=== PATIENT | female | born 1990 | race Caucasian/White ===

== ENCOUNTER 2016-07-31 15:19 | Emergency (ER) | payer BC ==
[2016-07-31] MEDS ORDERED: ONDANSETRON HCL 4 MG/2 ML VIAL ONE (15:37)
[2016-07-31] MEDS ORDERED: DEXAMETHASONE 10 MG/ML VIAL ONE (15:52)
[2016-07-31] MEDS ORDERED: HALOPERIDOL 5 MG/ML VIAL ONE (15:52)
[2016-07-31] MEDS ORDERED: DIPHENHYDRAMINE 50 MG/ML VIAL ONE (15:52)
--- NOTE | 2016-07-31 17:52 | ER PHYSICIAN DOCUMENTATION ---
Physician Documentation [facility] Name:Alisha Mullins Age:25 yrs Sex:Female :1990 Arrival Date:07/31/2016 Time:15:19 Bed4 Private MD: Marty Paz Disposition: 08/01 21:57 Chart complete. tl1 Disposition: 07/31/16 16:39 Discharged to Home/Self Care. Impression: Migraine Headache. - Condition is Good. - Discharge Instructions: HEADACHE, Migraine (Classical). - Prescriptions for Imitrex 20 mg/Actuation Nasal Aerosol, Carey - inhale 1 spray by INTRANASAL route once daily - x 1 dose; if headache returns, the dose may be repeated once after 2 hours, not to exceed a total daily dose of 2 sprays; 1 Inhaler. Zofran 4 mg Oral Tablet - take 1-2 tablet by ORAL route every 4-6 hours As needed; 10 tablet. - Medical Reconciliation form form. - Follow up: Aleida Encarnacion MD; When: 4- 6 days; Reason: Recheck today's complaints, Continuance of care. - Problem is new. - Symptoms have improved. - Notes: SOME OF YOUR SYMPTOMS MAY BE RELATED TO HIGH ALTITUDE WELL MIGRAINE. AVOID SLEEPING AT ANY HIGHER ALTITUDE FOR THE NEXT SEVERAL DAYS. DRINK PLENTY OF FLUIDS. RETURN FOR ANY WORSENING OF YOUR SYMPTOMS. HPI: 07/31 15:28 This 25 yrs old Female presents to ER via EMS with complaints of tl1 Nausea/Vomiting. 15:28 Onset: The symptom(s)/episode began/occurred gradually, yesterday, 24 hour(s) ago. She tl1 has a h/o mild altitude illness and migraine headaches. She drove here from [place], arriving 2 nights ago. Yesterday at about 4 pm she developed what she says was a typical migraine h/a with photophobia and subsequent nausea and repeated vomiting. She did have some typical visual symptoms at the start of this headache. She called medics b/c she is unable to keep anything down and feels diffusely weak with severe malaise and fatigue.. Historical: - Allergies: No known drug Allergies; - Home Meds: 1. BC pills - PMHx: MIGRAINES; ANXIETY; altitude illness; panic attacks; - Tetanus: < 10 years. - Ebola Screening: : Patient negative for fever greater than or equal to 101.5 degrees Fahrenheit, and additional compatible Ebola Virus Disease symptoms. Patient denies exposure to infectious person. Patient denies travel to an Ebola-affected area in the 21 days before illness onset. No symptoms or risks identified at this time. . - Immunization history: Flu Vaccine >1 year. - Social history: Smoking status: Patient states was never smoker of tobacco. ROS: 15:33 Abdomen/GI: Positive for nausea, vomiting, Negative for abdominal pain, diarrhea, tl1 constipation, black/tarry stool, rectal bleeding. 15:33 All other systems are negative. Exam: 15:33 Constitutional: The patient appears alert, awake, non-diaphoretic, non-toxic, well tl1 developed, well hydrated, well groomed, well nourished, uncomfortable. 15:33 Head/face: Exam is negative for acute changes, Sinus tenderness, is not appreciated. 15:33 Eyes: Periorbital structures: appear normal, Pupils: equal, round, and reactive to tl1 light and accomodation, Extraocular movements: intact throughout, Conjunctiva: normal. 15:33 ENT: Exam is negative for acute changes. 15:33 Neck: ROM/movement: is normal, is supple. 15:33 Cardiovascular: Rate: normal, Rhythm: regular, Heart sounds: normal, JVD: is not appreciated. 15:33 Respiratory: the patient does not display signs of respiratory distress, Respirations: normal, Breath sounds: are normal. 15:33 Abdomen/GI: Inspection: abdomen appears normal, Palpation: abdomen is soft and non-tender. 15:33 Musculoskeletal/extremity: Exam is negative for acute changes. 15:33 Skin: Exam negative for acute changes, rash. 15:33 Neuro: Orientation: is normal, appropriate for stated age, Mentation: is normal, Memory: is normal, Cranial nerves: grossly normal, Motor: moves all fours, Gait: is steady, at a normal pace, without difficulty, appropriate for age. Vital Signs: 15:24 BP 130 / 64; Pulse 70; Resp 14; Temp 99(O); Pulse Ox 98% on R/A; Weight 77.11 kg; tg Height 5 ft. 9 in. (175.26 cm); Pain 3/10; 16:21 BP 122 / 62; Pulse 64; Resp 14; Pulse Ox 95% on R/A; tg 17:00 BP 115 / 54 (auto/); tg 17:04 Pulse 70; Resp 12; Pulse Ox 95% ; tg 15:24 Body Mass Index 25.10 (77.11 kg, 175.26 cm) tg MDM: 15:28 Patient medically screened. tl1 17:00 Data reviewed: vital signs, nurses notes, and as a result, I will discharge patient. tl1 Counseling: I had a detailed discussion with the patient and/or guardian regarding: the historical points, exam findings, and any diagnostic results supporting the discharge/admit diagnosis. 17:00 Response to treatment: the patient's symptoms have markedly improved after treatment, tl1 and as a result, I will discharge patient. ED course: She felt significantly better. I told her I thought her symptoms are probably most consistent with a migraine headache, and with a possible contribution form some acute mountain sickness. She has had a good response to treatment and I think she does not need to descend in altitude quickly. I think she can recover if she just stays at this altitude for 2-3 days.. 06/04 16:04 Order name: Pulse Ox Continuous; Complete Time: 16:06 tg Dispensed Medications: 15:40 Drug: NS 0.9% 1000 ml; Route: IV; Rate: bolus; Site: right hand; tg 17:00 Follow up: IV Status: Completed infusion; IV Intake: 1000ml tg 15:57 Drug: Decadron 10 mg IVP - Dexamethasone 10 mg; Route: IVP; Site: right hand; tg 16:40 Follow up: Response: No adverse reaction tg 15:57 CANCELLED (Physician Discretion): acetaZOLAMIDE 250 mg PO once tg 15:59 Drug: Benadryl 25 mg; Route: IVP; Site: right hand; tg 16:21 Follow up: Response: No adverse reaction; Nausea is decreased; Pain is decreased tg 16:02 Drug: Haldol 2.5 mg; Route: IVP; Site: right hand; tg 16:21 Follow up: BP 122 / 62; Pulse 64 bpm; Resp 14 bpm; Pulse Ox 95% RA; Response: Nausea is tg decreased Signatures: Eris Best RN RN tg Marty Carrillo MD MD tl1
--- NOTE | 2016-07-31 17:52 | ER NURSING DOCUMENTATION ---
Nurse's Notes [facility] Name:Alisha Mullins Age:25 yrs Sex:Female :1990 Arrival Date:07/31/2016 Time:15:19 Bed4 Private MD: Diagnosis:Migraine Headache Presentation: 07/31 15:23 Presenting complaint: Patient states: N/V, headache, altitude. Transition of care: tg patient was not received from another setting of care. 15:23 Acuity: RAUL 3 tg 15:23 Method Of Arrival: EMS: 410 tg 15:33 Care prior to arrival: IV Fluids given by EMS NS 500 ml Medication(s) given: Zofran 4mg tg IVP. Triage Assessment: 15:23 General: Appears uncomfortable, well developed, well groomed, Behavior is cooperative, tg flat. Pain: Complains of pain in headache. Neuro: Level of Consciousness is awake, alert. Cardiovascular: Capillary refill < 3 seconds. Respiratory: Respiratory effort is even, unlabored. GI: Reports nausea, vomiting. Derm: Skin is pink, warm & dry. Historical: - Allergies: No known drug Allergies; - Home Meds: 1. BC pills - PMHx: MIGRAINES; ANXIETY; altitude illness; panic attacks; - Tetanus: < 10 years. - Ebola Screening: : Patient negative for fever greater than or equal to 101.5 degrees Fahrenheit, and additional compatible Ebola Virus Disease symptoms. Patient denies exposure to infectious person. Patient denies travel to an Ebola-affected area in the 21 days before illness onset. No symptoms or risks identified at this time. . - Immunization history: Flu Vaccine >1 year. - Social history: Smoking status: Patient states was never smoker of tobacco. Screenin:32 Infectious Disease Risk Unable to Obtain. Abuse screen: Denies threats or abuse. Denies tg injuries from another. Nutritional screening: No deficits noted. Assessment: 15:32 See Triage Assessment done by same RN. tg 16:40 Reassessment: Pt reports that she feels jittery and tired at the same time. Also tg reports that her nausea and headache have resolved. . 17:32 Neuro: Moves all extremities. Gait is steady. tg Vital Signs: 15:24 BP 130 / 64; Pulse 70; Resp 14; Temp 99(O); Pulse Ox 98% on R/A; Weight 77.11 kg; tg Height 5 ft. 9 in. (175.26 cm); Pain 3/10; 16:21 BP 122 / 62; Pulse 64; Resp 14; Pulse Ox 95% on R/A; tg 17:00 BP 115 / 54 (auto/); tg 17:04 Pulse 70; Resp 12; Pulse Ox 95% ; tg 15:24 Body Mass Index 25.10 (77.11 kg, 175.26 cm) tg ED Course: 15:20 Patient arrived in ED. jt 15:22 Eris Best, RN is Primary Nurse. tg 15:23 Triage completed. tg 15:28 Marty Carrillo MD is Attending Physician. tl1 15:32 Valuables Remains with patient. Pulse Ox - RN Monitoring Only. tg 15:32 Maintain field IV. Dressing intact. Site clean & dry. Gauge & site: 20g RHand. Oxygen tg Oxygen administration via nasal cannula @ 2L/min. 15:58 Assisted to bathroom. tg 16:10 Arm band placed on Bed in low position Call Light in Reach HOB Elevated Side rails up tg x2. 16:37 Aleida Encarnacion MD is Referral Physician. tl1 Administered Medications: 15:40 Drug: NS 0.9% 1000 ml; Route: IV; Rate: bolus; Site: right hand; tg 17:00 Follow up: IV Status: Completed infusion; IV Intake: 1000ml tg 15:57 Drug: Decadron 10 mg IVP - Dexamethasone 10 mg; Route: IVP; Site: right hand; tg 16:40 Follow up: Response: No adverse reaction tg 15:57 CANCELLED (Physician Discretion): acetaZOLAMIDE 250 mg PO once tg 15:59 Drug: Benadryl 25 mg; Route: IVP; Site: right hand; tg 16:21 Follow up: Response: No adverse reaction; Nausea is decreased; Pain is decreased tg 16:02 Drug: Haldol 2.5 mg; Route: IVP; Site: right hand; tg 16:21 Follow up: BP 122 / 62; Pulse 64 bpm; Resp 14 bpm; Pulse Ox 95% RA; Response: Nausea is tg decreased Intake: 17:00 IV: 1000ml; Total: 1000ml. tg Outcome: 16:39 Discharge ordered by . tl1 17:50 Discharged to home ambulatory, with family. tg 17:50 Condition: stable 17:50 Discharge Assessment: Patient awake, drowsy Patient has no functional deficits. 17:50 Discharge instructions given to patient, Parent Instructed on discharge instructions, follow up and referral plans. medication usage. 17:50 IV D/Biju 17:52 Patient left the ED. breonna 08/01 10:37 Discharge F/U Call: Unable to reach: left voicemail: breonna Signatures: Eris Best RN RN tg Marty Carrillo MD MD tl1 Verónica Gomez
== END 2016-07-31 17:52 | disposition home or self-care (01) ==
LOC: ER 15:19
DX: G43.009 Migraine without aura, not intractable, without status migrainosus (principal); R11.2 Nausea with vomiting, unspecified; R53.1 Weakness; R53.81 Other malaise; R53.83 Other fatigue; T70.29XA Other effects of high altitude, initial encounter; Z74.3 Need for continuous supervision
CPT/HCPCS: 96361; 96374; 96375; 99284; A0425; A0426; J1100; J1200; J1630; J2405